=== PATIENT | female | born 1995 | race Caucasian/White ===

== ENCOUNTER 2018-11-04 10:11 | Emergency (ER) | payer MEDICAID, OTHER ==
[2018-11-04 10:31] VITALS: BP 134/78
[2018-11-04] MEDS ORDERED: 0.9 % SODIUM CHLORIDE 1,000 ML IV ONE ×3 (10:48→12:20)
[2018-11-04 10:58] LABS: BASOPHILS % 0.6 % (0.0-1.5); NEUTROPHILS # 10.9 # k/uL (1.4-7.7)
--- NOTE | 2018-11-04 10:59 | ED Physician Documentation ---
General Adult - HISTORIAN Historian: patient - HPI Stated Complaint: vag bleeding and cramping Chief Complaint: General Adult Onset: hours Timing: still present Severity: moderate Further Comments: yes (Pt is a 22 yo female at 28 weeks gestation who has had some bleeding, ? vag vs urethra. Pt drinks lots of caffeninated beverages and had been dehydrated previously in . Pt has had some abd cramping. Good movement. EDC 01/26/19.) - ROS CONST: other (malaise) EYES/ENT: none CVS/RESP: none GI/: abdominal pain (crampy abd pain) MS/SKIN/LYMPH: none - PAST HX Past History: asthma Allergies/Adverse Reactions: Allergies Allergy/AdvReac Type Severity Reaction Status Date / Time No Known Allergies Allergy Verified 11/04/18 10:29 Home Medications: Ambulatory Orders Medication Instructions Recorded Cephalexin [Keflex] 500 mg PO Q12H #14 capsule 11/04/18 - SOCIAL HX Smoking History: cigarettes - FAMILY HX Family History: No - VITAL SIGNS Vital Signs: Vital Signs Temp Pulse Resp BP Pulse Ox 97.8 F 78 19 134/78 99 11/04/18 10:25 11/04/18 10:25 11/04/18 10:25 11/04/18 10:25 11/04/18 10:25 - REVIEWED ASSESSMENTS Nursing Assessment Reviewed: Yes Vitals Reviewed: Yes Progress - Progress Progress: NS 1 L IVF x 2 improved Rx Keflex 500 mg. Take one every 12 hours for 7 days. Try to limit your caffeine intake to avoid becoming dehydrated. Drink plenty of fluids. Follow up with your sanitation supervisor provider as planned. ED Results Lab/Radiology - Orders Orders: ED Orders Category Date Time Status CBC/PLATELET/DIFF Routine Lab 11/04/18 Ordered CMP Routine Lab 11/04/18 Ordered UA W/MICRO IF INDICATED Routine Lab 11/04/18 10:53 Ordered 0.9 % Sodium Chloride [Normal Saline] 1,000 ml Med 11/04/18 10:48 Discontinued IV .STK-MED 0.9 % Sodium Chloride [Normal Saline] 1,000 ml Med 11/04/18 10:52 Active IV Q1H General Adult Physical Exam - PHYSICAL EXAM GENERAL APPEARANCE: mild distress EENT: pharynx normal NECK: normal inspection, supple RESPIRATORY: no resp distress, chest non-tender, breath sounds normal CVS: reg rate & rhythm, heart sounds normal ABDOMEN: soft, no organomegaly, normal bowel sounds, other (gravid, pelvic exam: cervix close, no vag blood) BACK: normal inspection, no CVA tenderness SKIN: warm/dry, normal color EXTREMITIES: non-tender, normal range of motion NEURO: oriented X3, motor nml, sensation nml Discharge Clincal Impression: Dehydration UTI (urinary tract infection) during Qualifiers: Trimester: third trimester Qualified Code(s): O23.43 - Unspecified infection of urinary tract in , third trimester Prescriptions: Cephalexin [Keflex] 500 mg PO Q12H #14 capsule Referrals: Blanca Melendez MD [Primary Care Provider] - Condition: Stable Disposition: 01 HOME, SELF-CARE Decision to Admit: NO Decision Time: 12:26
[2018-11-04 11:02] LABS: eGFR (Non-African) > 60
[2018-11-04 14:02] LABS: APPEARANCE,URINE CLEAR (CLEAR); COLOR,URINE RED (YELLOW); OCCULT BLOOD,URINE 3+ (NEGATIVE); UROBILINOGEN URINE 0.2 Eu (0.2-1.0)
== END 2018-11-04 12:50 | disposition home or self-care (01) ==
LOC: ED 10:11
DX: O23.43 Unspecified infection of urinary tract in pregnancy, third trimester (principal); O26.893 Other specified pregnancy related conditions, third trimester; E86.0 Dehydration
CPT/HCPCS: 80053; 81002; 85025; 96360; 96361; 99284; J7030; S1016